=== PATIENT | male | born 1960 | race Caucasian/White ===

== ENCOUNTER → 2017-01-26 | Outpatient (CLI) | payer BC ==
[~2017-01-26] MED LIST: DOXY-300 PO; METO25TA3 PO; QUIN40TA18 PO; SIMV10TA2 PO
[2017-01-26 13:13] LABS: ALB/GLOB RATIO 1.2 (0.9-2); ALKALINE PHOSPHATASE 63 U/L (45-117); ALT/SGPT 46 U/L (12-78); AST/SGOT 38 U/L (15-37); BLOOD UREA NITROGEN 11 mg/dl (7-18); CALCIUM 8.8 mg/dl (8.5-10.1); CARBON DIOXIDE 26 mmol/L (21-32); CHLORIDE 106 mmol/L (98-107); CHOLESTEROL 209 mg/dl (0-200); CHOLESTEROL/HDL RATIO 3.9; GLUCOSE 124 mg/dl (70-99); HDL CHOLESTEROL 53 mg/dl; LDL CHOLESTEROL CALCULATED 129 mg/dl; SODIUM 141 mmol/L (136-145); TRIGLYCERIDES 134 mg/dl (0-150); VERY LOW DENSITY LIPOPROT CALC 27 mg/dl
== END | disposition home or self-care (01) ==
LOC: C.LABBC 09:54
PROVIDERS: ATTEND Nurse Practitioner Family
DX: I10 Essential (primary) hypertension (principal); E78.5 Hyperlipidemia, unspecified; E88.81 Metabolic syndrome and other insulin resistance; E83.42 Hypomagnesemia

== ENCOUNTER 2017-02-12 11:06 | Emergency (ER) | payer BC ==
[~2017-02-12] VITALS: Ht 177.8 cm; Wt 101.3 kg
[~2017-02-12 11:06] MED LIST changes: -DOXY-300 PO
[2017-02-12 11:08] VITALS: TEMP 36.7; Ht 177.8 cm; Wt 101.3 kg
[2017-02-12] MEDS ORDERED: DOXY-300 PO (11:23)
[2017-02-12] MEDS ORDERED: DIPHTHERIA/TETANUS/PERTUSSIS 0.5 ML SYR/VIAL IM. ONE (13:00)
[2017-02-12 13:09] VITALS: BP 143/98; PULSE 48; O2SAT 96
--- NOTE | 2017-02-12 13:17 | EMERGENCY ROOM VISIT NOTE ---
History Report prepared by Thuy: Gayle Quintero Under the Supervision of: Dr. Sudarshan Carlin M.D. First contact with patient: 12:41 Chief Complaint: BITE Stated Complaint: BITTEN BY INSECT, BIG SWOLLEN AREA History of Present Illness The patient is a 57 year old male who presents to the Emergency Room with complaints of a worsening bite on his right leg that started 3 days ago. The patient states that the bite started out looking like a mosquito bite, but has since gotten larger, more erythematous, and more painful. He saw his PCP yesterday and was started on doxycycline. She told him to come into the ED for further evaluation if his symptoms got worse. He states that the bite is larger , more erythematous, and more painful than yesterday. He is unsure of when he got the bite, but he states that he thinks he may have gotten it when he mowed the grass. The patient lives near the [facility] and has not noticed any ticks or tick bites. The patient is unsure of when his last tetanus shot was but he states that he definitely had one in 2003. The patient denies having any other bites. He also denies any abdominal pain. Source of History: patient Onset: 3 days ago Position: leg (right) Quality: other (bite) Timing: worsening Associated Symptoms: No abdominal pain Note: erythema surrounding bite, right leg pain, no other insect bites Review of Systems All systems have been listed, reviewed, and are negative other than those previously mentioned. Please see Additional Medical History Sheet. Past Medical & Surgical Medical Problems: (1) Hypertension Surgical Problems: (1) History of appendectomy Family History No pertinent family history Social History Smoking Status: Former Smoker Marital Status: Housing Status: lives with family Current/Historical Medications Scheduled Doxycycline (Monohydrate) (Doxycycline), 100 MG PO BID Metoprolol Succinate (Toprol Xl), 25 MG PO BID Quinapril Hcl (Accupril), 40 MG PO DAILY Simvastatin (Zocor), 10 MG PO QPM Allergies Coded Allergies: No Known Allergies (Unverified , 02/12/17) Physical Exam Vital Signs Date Time Temp Pulse Resp B/P (MAP) Pulse Ox O2 Delivery O2 Flow Rate FiO2 02/12/17 13:09 48 18 143/98 96 Room Air 02/12/17 11:08 36.7 66 18 150/95 97 Room Air Physical Exam GENERAL: Patient awake, alert, oriented x 3. Patient follows commands. Patient does not appear toxic. Patient is adequately hydrated and well- nourished. SKIN: No erythema, pallor, cyanosis or rash HEENT: Normal head, pupils equal, reactive to light and accommodation. LUNGS: Clear to auscultation. No wheezes, no rales, no rhonchi. HEART: No murmurs. No gallops. No rubs ABDOMEN: Soft. Nontender. EXTREMITIES: Approximately 6 cm erythematous slightly raised area in right popliteal fossa, no foreign bodies or signs of insect remnants. NEUROLOGIC: Cranial nerves II-XII within normal limits. No gross motor sensory function deficits. Medical Decision & Procedures Medications Administered Medications (Trade) Dose Ordered Sig/Hao Route Start Time Stop Time Status Last Admin Dose Admin Diphtheria/ Pertussis/Tetanus Vacc (Adacel Inj) 0.5 ml ONCE ONCE IM. 02/12/17 13:00 02/12/17 13:01 DC 02/12/17 13:07 0.5 ML ED Course 1245: Past medical records reviewed. The patient was evaluated in room B2. A complete history and physical examination was performed. 1255: After examination, I discussed today's findings with the patient and his . They verbalized agreement of the treatment plan. The patient was discharged home. 1300: Ordered Adacel Inj 0.5 ml IM Medical Decision Nurses notes reviewed. Medical history sheet reviewed. Differential diagnosis includes but is not limited to: tick bite, spider bite, other insect bite, contact dermatitis. The patient has an erythematous lesion in his popliteal fossa. This does not appear to be from a tick bite. More likely this is from a spider bite. The patient is currently on doxycycline which she was encouraged to continue. This may be an early cellulitis. The patient was given a tetanus/diphtheria/ pertussis booster. Medication Reconciliation: I attest that I have personally reviewed the patient' s current medication list. Blood Pressure Screening: Patient was found to have an elevated blood pressure and was referred to their primary doctor for recheck and further treatment. Impression Primary Impression: Insect bite Scribe Attestation The scribe's documentation has been prepared under my direction and personally reviewed by me in its entirety. I confirm that the note above accurately reflects all work, treatment, procedures, and medical decision making performed by me. Departure Information Dispostion Home / Self-Care Referrals No Doctor, Assigned (PCP) Forms HOME CARE DOCUMENTATION FORM, IMPORTANT VISIT INFORMATION Patient Instructions My [facility] Additional Instructions Wash the area gently twice a day with soap and water. Continue doxycycline twice a day for the next 5 days. Recheck here or with your family physician in 7 days if the rash is not going away. Problem Qualifiers Primary Impression: Insect bite
== END 2017-02-12 13:18 | disposition home or self-care (01) ==
LOC: C.EDB 11:07
DX: S81.851A Open bite, right lower leg, initial encounter (principal); W57.XXXA Bitten or stung by nonvenomous insect and other nonvenomous arthropods, initial encounter; I10 Essential (primary) hypertension; Z87.891 Personal history of nicotine dependence; Z90.89 Acquired absence of other organs; Z79.899 Other long term (current) drug therapy; Z23 Encounter for immunization

== ENCOUNTER → 2017-08-17 | Outpatient (CLI) | payer BC ==
[~2017-08-17] MED LIST changes: +DOXY-300 PO
[2017-08-17 11:59] LABS: HEMOGLOBIN A1C 6.4 % (4.5-5.6)
[2017-08-17 13:17] LABS: ALBUMIN 4.1 gm/dl (3.4-5.0); ALT/SGPT 48 U/L (12-78); AST/SGOT 45 U/L (15-37); BLOOD UREA NITROGEN 14 mg/dl (7-18); CALCIUM 9.1 mg/dl (8.5-10.1); CARBON DIOXIDE 29 mmol/L (21-32); CREATININE 1.22 mg/dl (0.60-1.40); GLUCOSE 152 mg/dl (70-99); SODIUM 137 mmol/L (136-145)
[2017-08-17 13:20] LABS: ALKALINE PHOSPHATASE 62 U/L (45-117); CHOLESTEROL 212 mg/dl (0-200); LDL CHOLESTEROL CALCULATED 131 mg/dl; TOTAL PROTEIN 7.9 gm/dl (6.4-8.2)
== END | disposition home or self-care (01) ==
LOC: C.LAB1850 09:52
PROVIDERS: ATTEND Nurse Practitioner Family
DX: Z00.00 Encounter for general adult medical examination without abnormal findings (principal); I10 Essential (primary) hypertension; E78.5 Hyperlipidemia, unspecified; E88.81 Metabolic syndrome and other insulin resistance

== ENCOUNTER → 2017-12-11 | Outpatient (CLI) | payer BC ==
[~2017-12-11] MED LIST changes: -METO25TA3 PO; +METO25TA4 PO
== END | disposition home or self-care (01) ==
LOC: C.LABBC 11:22
PROVIDERS: ATTEND Nurse Practitioner Family
DX: Z00.00 Encounter for general adult medical examination without abnormal findings (principal)

== ENCOUNTER → 2018-03-24 | Outpatient (CLI) | payer BC ==
[~2018-03-24] MED LIST changes: +QUIN1TAB49 PO; -QUIN40TA18 PO
[2018-03-24 17:44] LABS: ALBUMIN 4.3 gm/dl (3.4-5.0); ALKALINE PHOSPHATASE 61 U/L (45-117); ALT/SGPT 36 U/L (12-78); AST/SGOT 26 U/L (15-37); BLOOD UREA NITROGEN 14 mg/dl (7-18); CALCIUM 8.9 mg/dl (8.5-10.1); CARBON DIOXIDE 24 mmol/L (21-32); CHOLESTEROL 190 mg/dl (0-200); CREATININE 0.95 mg/dl (0.60-1.40); GLUCOSE 134 mg/dl (70-99); LDL CHOLESTEROL CALCULATED 119 mg/dl; POTASSIUM 3.8 mmol/L (3.5-5.1); SODIUM 136 mmol/L (136-145); TOTAL PROTEIN 7.9 gm/dl (6.4-8.2)
[2018-03-25 05:55] LABS: HEMOGLOBIN A1C 6.8 % (4.5-5.6)
== END | disposition home or self-care (01) ==
LOC: C.LABBC 15:23
PROVIDERS: ATTEND Nurse Practitioner Family
DX: I10 Essential (primary) hypertension (principal); E78.5 Hyperlipidemia, unspecified; E88.81 Metabolic syndrome and other insulin resistance